=== PATIENT | female | born 1965 | race Caucasian/White ===

== ENCOUNTER 2020-06-03 15:47 | Outpatient (CLI) | payer BC, MEDICARE | END 2020-06-03 23:59 | disposition home or self-care (01) | LOC: CVU 15:47 | PROVIDERS: ATTEND Internal Medicine | DX: I35.8 Other nonrheumatic aortic valve disorders (principal); I11.0 Hypertensive heart disease with heart failure; I50.22 Chronic systolic (congestive) heart failure | CPT/HCPCS: 93306 ==